=== PATIENT | male | born 2000 | race Caucasian/White ===

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

== ENCOUNTER 2022-01-11 14:50 | Outpatient (CLI) | payer OTHER | END 2022-01-11 14:51 | disposition critical access hospital (66) | LOC: EMS 14:50 | DX: R58 Hemorrhage, not elsewhere classified (principal) | CPT/HCPCS: A0425; A0429 ==

== ENCOUNTER 2022-01-11 15:18 | Emergency (ER) | payer OTHER ==
[2022-01-11] MEDS ORDERED: SODIUM CHLORIDE 0.9% 1,000 ML IV STA (15:22)
[2022-01-11] MEDS ORDERED: DEXAMETHASONE 10 MG/ML VIAL IVP STA (15:22)
--- OUTSIDE RECORDS SUMMARY | 2022-01-11 15:28 | EXTERNAL MEDICAL SUMMARY RPT | Continuity of Care Document ---
:2000 Author Organization [facility] Address [address] [place] [address] Phone Allergies and Intolerances date description facility type (no date) [facility] (unknown) Encounters No information. Functional Status No information. Immunizations No information. Medications No information. Problems No information. Procedures No information. Results/Labs test date author facility value unit interpret ation Result panel 1 (unknown) (no date) (unknown) (unknown) Negative (units (unkn own) unknown) (unknown) (no date) (unknown) (unknown) Negative (units (unkn own) unknown) Result panel 2 (unknown) (no date) (unknown) (unknown) (no value) (units (un known) unknown) (unknown) (no date) (unknown) (unknown) 01/10/22 1100 (units (unknown) unknown) (unknown) (no date) (unknown) (unknown) 541 (units (unkn own) unknown) (unknown) (no date) (unknown) (unknown) Age/Sex: 21 / (units (unknown) M unknown) (unknown) (no date) (unknown) (unknown) Changes to (units (un known) H+P: No unknown) (unknown) (no date) (unknown) (unknown) : (units (unkn own) 2000 unknown) Acct:[id number] (unknown) (no date) (unknown) (unknown) Date of (units (unkn own) Service: unknown) 01/10/22 (unknown) (no date) (unknown) (unknown) History + (units (unk nown) Physical unknown) reviewed/Exam performed by Physician: Yes (unknown) (no date) (unknown) (unknown) Interval Note (units (unknown) unknown) (unknown) (no date) (unknown) (unknown) [place] (units (unkn own) [facility] [address] unknown) [address] [place] [id number] (unknown) (no date) (unknown) (unknown) Patient: (units (unkn own) Emmanuel Davis unknown) MR#: [id number] (unknown) (no date) (unknown) (unknown) Pre-operative (units (unknown) Note unknown) (unknown) (no date) (unknown) (unknown) Provider: (units (unk nowvidal) Inder Herzog unknown) (unknown) (no date) (unknown) (unknown) Signed (units (unkn own) By:<Electronic unknown) ally signed by Inder Herzog MD> Result panel 3 (unknown) (no (unknown) (unknown) (no value) (units (unk nown) date) unknown) (unknown) (no (unknown) (unknown) (past 8 hours): (units (unknown) date) unknown) (unknown) (no (unknown) (unknown) 01/10/22 1103 (units ( unknown) date) unknown) (unknown) (no (unknown) (unknown) 01/10/22 (units (unkno wn) date) unknown) (unknown) (no (unknown) (unknown) 10:24 (units (unkno wn) date) unknown) (unknown) (no (unknown) (unknown) 21-year-old male (units (unknown) date) last seen in unknown) clinic 07/24/2021 presents for tonsillectomy and (unknown) (no (unknown) (unknown) 541 (units (unkno wn) date) unknown) (unknown) (no (unknown) (unknown) Age/Sex: 21 / M (units (unknown) date) unknown) (unknown) (no (unknown) (unknown) Allergies (units (unkn own) date) unknown) (unknown) (no (unknown) (unknown) Allergy/AdvReac (units (unknown) date) Type Severity unknown) Reaction Status Date / Time (unknown) (no (unknown) (unknown) Assessment + (units (u nknown) date) Plan narrative: unknown) (unknown) (no (unknown) (unknown) Assessment + (units (u nknown) date) Plan unknown) (unknown) (no (unknown) (unknown) Assessment: (units (un known) date) Upper airway unknown) obstruction secondary to tonsillar, possible adenoid (unknown) (no (unknown) (unknown) Blood Pressure (units (unknown) date) 125/77 unknown) (unknown) (no (unknown) (unknown) COVID-19 virus (units (unknown) date) infection unknown) (10/09/21) (unknown) (no (unknown) (unknown) Chief complaint: (units (unknown) date) SDC unknown) (unknown) (no (unknown) (unknown) Critical Care (units ( unknown) date) time: unknown) (unknown) (no (unknown) (unknown) : 2000 (units (unknown) date) Acct:[id number] unknown) (unknown) (no (unknown) (unknown) Date Patient (units (u nknown) date) Seen: 01/10/22 unknown) (unknown) (no (unknown) (unknown) Date of Service: (units (unknown) date) 01/10/22 unknown) (unknown) (no (unknown) (unknown) Dysphagia (units (unkn own) date) unknown) (unknown) (no (unknown) (unknown) Exam Narrative: (units (unknown) date) unknown) (unknown) (no (unknown) (unknown) Exam (units (unkno wn) date) unknown) (unknown) (no (unknown) (unknown) Family + Social (units (unknown) date) History unknown) (unknown) (no (unknown) (unknown) History + (units (unkn own) date) Physical Report unknown) (unknown) (no (unknown) (unknown) History of (units (unk nown) date) Present Illness unknown) (unknown) (no (unknown) (unknown) Home Medications (units (unknown) date) and Allergies unknown) (unknown) (no (unknown) (unknown) Home Medications (units (unknown) date) unknown) (unknown) (no (unknown) (unknown) I spent a total (units (unknown) date) of [] minutes of unknown) critical care time on this patient's care (unknown) (no (unknown) (unknown) [facility] (units (unknown) date) [address] unknown) [place] [address] (unknown) (no (unknown) (unknown) Medical History (units (unknown) date) (Reviewed unknown) 01/10/22 @ 11:01 by Inder Herzog MD) (unknown) (no (unknown) (unknown) Medication (units (unk nown) date) Instructions unknown) Recorded Confirmed Type (unknown) (no (unknown) (unknown) Meds (units (unkno wn) date) unknown) (unknown) (no (unknown) (unknown) Narrative (units (unkn own) date) unknown) (unknown) (no (unknown) (unknown) Narrative: (units (unk nown) date) unknown) (unknown) (no (unknown) (unknown) Negative except (units (unknown) date) as listed in the unknown) HPI (unknown) (no (unknown) (unknown) No Known Home (units ( unknown) date) Medications unknown) 10/09/21 10/09/21 History (unknown) (no (unknown) (unknown) No recent cough (units (unknown) date) cold or fever. unknown) (unknown) (no (unknown) (unknown) Oxygen Delivery (units (unknown) date) Method Room Air unknown) (unknown) (no (unknown) (unknown) Patient History (units (unknown) date) unknown) (unknown) (no (unknown) (unknown) Patient: (units (unkno wn) date) Emmanuel Davis MR#: unknown) [id number] (unknown) (no (unknown) (unknown) Penicillins (units (un known) date) Allergy Severe unknown) Facial, Verified 01/10/22 10:09 (unknown) (no (unknown) (unknown) Plan: Following (units (unknown) date) discussion of the unknown) material risks benefits complications and (unknown) (no (unknown) (unknown) Provider: (units (unkn own) date) Inder Herzog MD unknown) (unknown) (no (unknown) (unknown) Pulse Oximetry (units (unknown) date) 97 unknown) (unknown) (no (unknown) (unknown) Pulse Rate 83 (units ( unknown) date) unknown) (unknown) (no (unknown) (unknown) Recurrent acute (units (unknown) date) tonsillitis unknown) (unknown) (no (unknown) (unknown) Respiratory Rate (units (unknown) date) 16 unknown) (unknown) (no (unknown) (unknown) Respiratory (units (un known) date) obstruction unknown) (unknown) (no (unknown) (unknown) Review of (units (unkn own) date) Systems unknown) (unknown) (no (unknown) (unknown) Signed (units (unkno wn) date) By:<Electronicall unknown) y signed by Inder Herzog MD> (unknown) (no (unknown) (unknown) Smoking Status (units (unknown) date) Never smoker unknown) (unknown) (no (unknown) (unknown) Social History: (units (unknown) date) unknown) (unknown) (no (unknown) (unknown) Substance Use (units ( unknown) date) Type does not use unknown) (unknown) (no (unknown) (unknown) Temperature 98.5 (units (unknown) date) F unknown) (unknown) (no (unknown) (unknown) Time Patient (units (u nknown) date) Seen: 11:00 unknown) (unknown) (no (unknown) (unknown) Time Spent With (units (unknown) date) Patient unknown) (unknown) (no (unknown) (unknown) Tobacco + (units (unkn own) date) Substance use: unknown) (unknown) (no (unknown) (unknown) Tonsillar (units (unkn own) date) hypertrophy unknown) (unknown) (no (unknown) (unknown) Vital Signs (units (un known) date) unknown) (unknown) (no (unknown) (unknown) Well-developed (units (unknown) date) well-nourished unknown) large for age male in no acute distress. Heart (unknown) (no (unknown) (unknown) adenoidectomy as (units (unknown) date) outpatient. unknown) (unknown) (no (unknown) (unknown) alcohol intake (units (unknown) date) never unknown) (unknown) (no (unknown) (unknown) alternatives, (units ( unknown) date) the patient unknown) elected to proceed with tonsillectomy and possible (unknown) (no (unknown) (unknown) household (units (unkn own) date) members family unknown) (unknown) (no (unknown) (unknown) hypertrophy, (units (u nknown) date) recurrent acute unknown) tonsillitis, dysphagia (unknown) (no (unknown) (unknown) last visit, (units (un known) date) symptoms unknown) otherwise unchanged, wishes to proceed. His initial (unknown) (no (unknown) (unknown) possible (units (unkno wn) date) adenoidectomy for unknown) significant hypertrophy, upper airway obstruction, (unknown) (no (unknown) (unknown) recurrent acute (units (unknown) date) tonsillitis and unknown) dysphagia. No interval severe episodes since (unknown) (no (unknown) (unknown) regular rate and (units (unknown) date) rhythm without unknown) murmur, lungs clear to auscultation bilaterally. (unknown) (no (unknown) (unknown) surgery date was (units (unknown) date) delayed due to unknown) COVID positive diagnosis 10/09, now asymptomatic. (unknown) (no (unknown) (unknown) swelling (units (unkno wn) date) unknown) (unknown) (no (unknown) (unknown) throat (units (unkno wn) date) unknown) (unknown) (no (unknown) (unknown) today; this time (units (unknown) date) is exclusive of unknown) procedural time. Result panel 4 (unknown) (no (unknown) (unknown) (no value) (units (unk nown) date) unknown) (unknown) (no (unknown) (unknown) 21-year-old male (units (unknown) date) with the above unknown) diagnoses incompletely managed with medical (unknown) (no (unknown) (unknown) 541 (units (unkno wn) date) unknown) (unknown) (no (unknown) (unknown) Age/Sex: 21 / M (units (unknown) date) unknown) (unknown) (no (unknown) (unknown) Anesthesia Type: (units (unknown) date) General and Local unknown) (unknown) (no (unknown) (unknown) Click Yes if (units (u nknown) date) Unassisted: Yes unknown) (unknown) (no (unknown) (unknown) Complications: (units (unknown) date) none unknown) (unknown) (no (unknown) (unknown) Condition: (units (unk nown) date) stable unknown) (unknown) (no (unknown) (unknown) : 2000 (units (unknown) date) Acct:[id number] unknown) (unknown) (no (unknown) (unknown) Date of Service: (units (unknown) date) 01/10/22 unknown) (unknown) (no (unknown) (unknown) Date of (units (unkno wn) date) procedure: unknown) 01/10/22 (unknown) (no (unknown) (unknown) Disposition: (units (u nknown) date) same day surgery unknown) (unknown) (no (unknown) (unknown) Findings: (units (unkn own) date) unknown) (unknown) (no (unknown) (unknown) Following (units (unkn own) date) identification unknown) and confirmation of consent the patient was brought to (unknown) (no (unknown) (unknown) Indications: (units (u nknown) date) unknown) (unknown) (no (unknown) (unknown) Intact palate, (units (unknown) date) single uvula, 4+ unknown) tonsils, 2+ adenoids (unknown) (no (unknown) (unknown) [facility] (units (unknown) date) [address] unknown) [place] [address] (unknown) (no (unknown) (unknown) Operative (units (unkn own) date) Date/Time/Diagnos unknown) es (unknown) (no (unknown) (unknown) Operative Note (units (unknown) date) unknown) (unknown) (no (unknown) (unknown) Operative Notes (units (unknown) date) unknown) (unknown) (no (unknown) (unknown) Patient: (units (unkno wn) date) Emmanuel Davis MR#: unknown) [id number] (unknown) (no (unknown) (unknown) Plan for (units (unkno wn) date) aftercare: unknown) (unknown) (no (unknown) (unknown) Post-op (units (unkno wn) date) diagnosis: same unknown) (unknown) (no (unknown) (unknown) Post-operative (units (unknown) date) unknown) (unknown) (no (unknown) (unknown) Pre-op (units (unkno wn) date) diagnosis: Upper unknown) airway obstruction secondary to tonsillar hypertrophy, (unknown) (no (unknown) (unknown) Procedure + (units (un known) date) Clinicians unknown) (unknown) (no (unknown) (unknown) Procedure in (units (u nknown) date) detail: unknown) (unknown) (no (unknown) (unknown) Procedure: (units (unk nown) date) unknown) (unknown) (no (unknown) (unknown) Provider: (units (unkn own) date) Inder Herzog MD unknown) (unknown) (no (unknown) (unknown) Push fluids, (units (u nknown) date) alternate Tylenol unknown) and Advil every 3 hours for baseline pain (unknown) (no (unknown) (unknown) Same procedure (units (unknown) date) as scheduled: Yes unknown) (unknown) (no (unknown) (unknown) Signed By: (units (unk nown) date) unknown) (unknown) (no (unknown) (unknown) Surgeon: Inder (units (unknown) date) Mino unknown) (unknown) (no (unknown) (unknown) The left tonsil (units (unknown) date) was retracted unknown) medially and suction electrocautery on a setting (unknown) (no (unknown) (unknown) Tonsillectomy (units ( unknown) date) unknown) (unknown) (no (unknown) (unknown) ablated with (units (u nknown) date) suction unknown) electrocautery on a setting of 40, without injury to the (unknown) (no (unknown) (unknown) bilaterally with (units (unknown) date) 2% lidocaine 1 unknown) 100,000 epinephrine. Mouth gag and rubber (unknown) (no (unknown) (unknown) catheter were (units ( unknown) date) removed and the unknown) patient was extubated in the operating room and (unknown) (no (unknown) (unknown) control, (units (unkno wn) date) oxycodone for unknown) breakthrough pain. Soft diet 2 full weeks, no heavy (unknown) (no (unknown) (unknown) eustachian tube (units (unknown) date) orifices or unknown) choana. (unknown) (no (unknown) (unknown) hemostasis with (units (unknown) date) the same. This unknown) process was repeated on the right side with (unknown) (no (unknown) (unknown) identical (units (unkn own) date) findings. The unknown) tonsillar fossae were superficially infiltrated (unknown) (no (unknown) (unknown) l anesthesia was (units (unknown) date) administered. A unknown) head wrap, shoulder roll, and mouth gag were (unknown) (no (unknown) (unknown) lifting or (units (unk nown) date) straining 2 unknown) weeks. (unknown) (no (unknown) (unknown) mouth to retract (units (unknown) date) the soft palate. unknown) Partially obstructive adenoid tissue was (unknown) (no (unknown) (unknown) of 30 was used (units (unknown) date) to dissect the unknown) tonsil in a subcapsular plane, followed by (unknown) (no (unknown) (unknown) placed and a red (units (unknown) date) rubber catheter unknown) was inserted through the nostril and out the (unknown) (no (unknown) (unknown) recurrent acute (units (unknown) date) tonsillitis, unknown) dysphagia (unknown) (no (unknown) (unknown) risks benefits (units (unknown) date) complications and unknown) alternatives, the patient elected proceed. (unknown) (no (unknown) (unknown) taken to the (units (u nknown) date) recovery room in unknown) stable condition without known complication. (unknown) (no (unknown) (unknown) the operating (units ( unknown) date) room suite and unknown) placed in the supine position. General endotrachea (unknown) (no (unknown) (unknown) therapy presents (units (unknown) date) for the above unknown) procedure. Following discussion of the material Result panel 5 (unknown) (no (unknown) (unknown) (no value) (units (unk nown) date) unknown) (unknown) (no (unknown) (unknown) 01/10/22 1157 (units ( unknown) date) unknown) (unknown) (no (unknown) (unknown) 21-year-old male (units (unknown) date) with the above unknown) diagnoses incompletely managed with medical (unknown) (no (unknown) (unknown) 541 (units (unkno wn) date) unknown) (unknown) (no (unknown) (unknown) Age/Sex: 21 / M (units (unknown) date) unknown) (unknown) (no (unknown) (unknown) Anesthesia Type: (units (unknown) date) General and Local unknown) (unknown) (no (unknown) (unknown) Click Yes if (units (u nknown) date) Unassisted: Yes unknown) (unknown) (no (unknown) (unknown) Complications: (units (unknown) date) none unknown) (unknown) (no (unknown) (unknown) Condition: (units (unk nown) date) stable unknown) (unknown) (no (unknown) (unknown) : 2000 (units (unknown) date) Acct:[id number] unknown) (unknown) (no (unknown) (unknown) Date of Service: (units (unknown) date) 01/10/22 unknown) (unknown) (no (unknown) (unknown) Date of (units (unkno wn) date) procedure: unknown) 01/10/22 (unknown) (no (unknown) (unknown) Disposition: (units (u nknown) date) same day surgery unknown) (unknown) (no (unknown) (unknown) Estimated Blood (units (unknown) date) Loss (mL): 15 unknown) (unknown) (no (unknown) (unknown) Findings: (units (unkn own) date) unknown) (unknown) (no (unknown) (unknown) Following (units (unkn own) date) identification unknown) and confirmation of consent the patient was brought to (unknown) (no (unknown) (unknown) Indications: (units (u nknown) date) unknown) (unknown) (no (unknown) (unknown) Intact palate, (units (unknown) date) single uvula, 4+ unknown) tonsils, 2+ adenoids (unknown) (no (unknown) (unknown) [facility] (units (unknown) date) [address] unknown) [place] [address] (unknown) (no (unknown) (unknown) Operative (units (unkn own) date) Date/Time/Diagnos unknown) es (unknown) (no (unknown) (unknown) Operative Note (units (unknown) date) unknown) (unknown) (no (unknown) (unknown) Operative Notes (units (unknown) date) unknown) (unknown) (no (unknown) (unknown) Patient: (units (unkno wn) date) Emmanuel Davis MR#: unknown) [id number] (unknown) (no (unknown) (unknown) Plan for (units (unkno wn) date) aftercare: unknown) (unknown) (no (unknown) (unknown) Post-op (units (unkno wn) date) diagnosis: same unknown) (with mild adenoid hypertrophy) (unknown) (no (unknown) (unknown) Post-operative (units (unknown) date) unknown) (unknown) (no (unknown) (unknown) Pre-op (units (unkno wn) date) diagnosis: Upper unknown) airway obstruction secondary to tonsillar hypertrophy, (unknown) (no (unknown) (unknown) Procedure + (units (un known) date) Clinicians unknown) (unknown) (no (unknown) (unknown) Procedure in (units (u nknown) date) detail: unknown) (unknown) (no (unknown) (unknown) Procedure: (units (unk nown) date) unknown) (unknown) (no (unknown) (unknown) Provider: (units (unkn own) date) Inder Herzog MD unknown) (unknown) (no (unknown) (unknown) Push fluids, (units (u nknown) date) alternate Tylenol unknown) and Advil every 3 hours for baseline pain (unknown) (no (unknown) (unknown) Same procedure (units (unknown) date) as scheduled: Yes unknown) (unknown) (no (unknown) (unknown) Signed (units (unkno wn) date) By:<Electronicall unknown) y signed by Inder Herzog MD> (unknown) (no (unknown) (unknown) Surgeon: Inder (units (unknown) date) Mino unknown) (unknown) (no (unknown) (unknown) The left tonsil (units (unknown) date) was retracted unknown) medially and suction electrocautery on a setting (unknown) (no (unknown) (unknown) Time of (units (unkno wn) date) procedure: 11:55 unknown) (unknown) (no (unknown) (unknown) Tonsillectomy (units ( unknown) date) and adenoidectomy unknown) (unknown) (no (unknown) (unknown) bilaterally with (units (unknown) date) 2% lidocaine 1 unknown) 100,000 epinephrine. Mouth gag and rubber (unknown) (no (unknown) (unknown) catheter were (units ( unknown) date) removed and the unknown) patient was extubated in the operating room and (unknown) (no (unknown) (unknown) control, (units (unkno wn) date) oxycodone for unknown) breakthrough pain. Soft diet 2 full weeks, no heavy (unknown) (no (unknown) (unknown) endotracheal (units (u nknown) date) anesthesia was unknown) administered. A head wrap, shoulder roll, and mouth (unknown) (no (unknown) (unknown) gag were placed (units (unknown) date) and a red rubber unknown) catheter was inserted through the nostril and (unknown) (no (unknown) (unknown) hemostasis with (units (unknown) date) the same. This unknown) process was repeated on the right side with (unknown) (no (unknown) (unknown) identical (units (unkn own) date) findings. The unknown) tonsillar fossae were superficially infiltrated (unknown) (no (unknown) (unknown) lifting or (units (unk nown) date) straining 2 unknown) weeks. (unknown) (no (unknown) (unknown) of 30 was used (units (unknown) date) to dissect the unknown) tonsil in a subcapsular plane, followed by (unknown) (no (unknown) (unknown) out the mouth to (units (unknown) date) retract the soft unknown) palate. Partially obstructive adenoid tissue (unknown) (no (unknown) (unknown) recurrent acute (units (unknown) date) tonsillitis, unknown) dysphagia (unknown) (no (unknown) (unknown) risks benefits (units (unknown) date) complications and unknown) alternatives, the patient elected proceed. (unknown) (no (unknown) (unknown) taken to the (units (u nknown) date) recovery room in unknown) stable condition without known complication. (unknown) (no (unknown) (unknown) the eustachian (units (unknown) date) tube orifices or unknown) choana. (unknown) (no (unknown) (unknown) the operating (units ( unknown) date) room suite and unknown) placed in the supine position. General (unknown) (no (unknown) (unknown) therapy presents (units (unknown) date) for the above unknown) procedure. Following discussion of the material (unknown) (no (unknown) (unknown) was ablated with (units (unknown) date) suction unknown) electrocautery on a setting of 40, without injury to Social History No information. Vital Signs No information.
--- NOTE | 2022-01-11 15:32 | ED Physician Documentation ---
History of Present Illness - Stated complaint Stated Complaint: BLEEDING TONSILS - History obtained from History obtained from: Patient, EMS - History of Present Illness Timing: Today - Additonal information Additional information: May Davis is a 21-year-old male who had his tonsils taken out yesterday at [facility] by Dr. Inder Herzog. This morning he has developed acute bleeding and passing clots. He called the ambulance has come to the hospital. In route to the hospital his bleeding has reduced. Review of Systems Constitutional: denies: Fever Eyes: denies: Decreased vision Ears: denies: Ear pain Nose: denies: Rhinorrhea / runny nose, Congestion Throat: reports: Sore throat Respiratory: denies: Cough GI: denies: Vomiting, Diarrhea : denies: Dysuria PD PAST MEDICAL HISTORY - Past Medical History Cardiovascular: None Respiratory: None Neuro: None Endocrine/Autoimmune: None GI: None : None HEENT: None Psych: None Musculoskeletal: None Derm: None - Past Surgical History Past Surgical History: No - Present Medications Home Medications: Ambulatory Orders Medication Instructions Recorded Confirmed No Known Home Medications 09/08/21 09/08/21 - Allergies Allergies/Adverse Reactions: Allergies Allergy/AdvReac Type Severity Reaction Status Date / Time Penicillins Allergy Intermediate swelling Verified 01/11/22 15:26 - Social History Does the pt smoke?: No Smoking Status: Never smoker Does the pt drink ETOH?: No Does the pt have substance abuse?: Yes - Immunizations Immunizations are current?: Yes - POLST Patient has POLST: No PD ED PE NORMAL - Vitals Vital signs reviewed: Yes (normal ) - General General: Alert and oriented X 3, No acute distress, Well developed/nourished - HEENT HEENT: Atraumatic, PERRL, EOMI, Other (There is a clot to the left tonsil bed without active bleeding the clot on the right is smaller and consistent with post op day 1) - Neck Neck: Supple, no meningeal sign, No bony TTP - Cardiac Cardiac: RRR, No murmur - Respiratory Respiratory: No respiratory distress, Clear bilaterally - Abdomen Abdomen: Soft, Non tender - Back Back: No CVA TTP, No spinal TTP - Derm Derm: Normal color, Warm and dry, No rash - Extremities Extremities: No deformity, No edema - Neuro Neuro: Alert and oriented X 3, glacing machine tender 2-12 intact, No motor deficit, No sensory deficit, Other (speech consistent with pharyngeal swelling ) Eye Opening: Spontaneous Motor: Obeys Commands Verbal: Oriented GCS Score: 15 - Psych Psych: Normal mood, Normal affect Results - Vitals Vitals: Vital Signs - 24 hr 01/11/22 15:20 Temperature 37.2 C Heart Rate 82 Respiratory 16 Rate Blood Pressure 104/76 O2 Saturation 97 Oxygen O2 Source Room air - Labs Labs: Laboratory Tests 01/11/22 01/11/22 01/11/22 15:27 15:27 15:27 WBC 20.0 H RBC 4.82 Hgb 14.2 Hct 41.2 L MCV 85.5 MCH 29.5 MCHC 34.5 RDW 11.9 L Plt Count 298 MPV 9.4 Neut # (Auto) 15.1 H Lymph # (Auto) 2.9 Major # (Auto) 1.8 H Eos # (Auto) 0.0 Baso # (Auto) 0.0 Absolute Nucleated RBC 0.00 Band Neuts % (Manual) Not Reportable Abnorm Lymph % (Manual) Not Reportable Nucleated RBC % 0.0 Neutrophils # (Manual) Not Reportable Lymphocytes # (Manual) Not Reportable Monocytes # (Manual) Not Reportable Eosinophils # (Manual) Not Reportable Basophils # (Manual) Not Reportable Differential Comment MANUAL=AUTO DIFF Manual Slide Review Indicated Platelet Estimate NORMAL (130-450,000) Platelet Morphology NORMAL APPEARANCE RBC Morph Micro Appear NORMAL APPEARANCE Sodium 136 Potassium 3.7 Chloride 104 Carbon Dioxide 23 Anion Gap 9.0 BUN 16 Creatinine 0.8 Estimated GFR (MDRD) 125 Glucose 114 H Calcium 9.5 Total Bilirubin 0.6 AST 19 ALT 22 Alkaline Phosphatase 73 Total Protein 7.0 Albumin 3.8 Globulin 3.2 Albumin/Globulin Ratio 1.2 Lipase 32 Blood Type AB POSITIVE Blood Type Recheck Antibody Screen NEGATIVE 01/11/22 16:14 WBC RBC Hgb Hct MCV MCH MCHC RDW Plt Count MPV Neut # (Auto) Lymph # (Auto) Major # (Auto) Eos # (Auto) Baso # (Auto) Absolute Nucleated RBC Band Neuts % (Manual) Abnorm Lymph % (Manual) Nucleated RBC % Neutrophils # (Manual) Lymphocytes # (Manual) Monocytes # (Manual) Eosinophils # (Manual) Basophils # (Manual) Differential Comment Manual Slide Review Platelet Estimate Platelet Morphology RBC Morph Micro Appear Sodium Potassium Chloride Carbon Dioxide Anion Gap BUN Creatinine Estimated GFR (MDRD) Glucose Calcium Total Bilirubin AST ALT Alkaline Phosphatase Total Protein Albumin Globulin Albumin/Globulin Ratio Lipase Blood Type Blood Type Recheck AB POSITIVE Antibody Screen PD MEDICAL DECISION MAKING - ED course Complexity details: considered differential, d/w patient, d/w family ED course: 21-year-old day 1 postop from tonsillectomy has developed postoperative bleeding this has spontaneously improved. He is administered 10 mg of dexamethasone and 1 g of tranexamic acid intravenously. He has no further bleeding while in the emergency department reexamination shows a clot pointing off of the left tonsil. No active bleeding. Departure - Departure Disposition: Home, Self Care Clinical Impression: Postoperative haemorrhage of tonsil Condition: Stable Instructions: ED Tonsillectomy Post Op Bleeding Follow-Up: Inder Herzog MD [Physician No Access] - Comments: May, Today it looks like we have control of this bleeding. If your bleeding re-starts and is not controllable the recommendation is to follow up in the ED at [facility] where your surgeon can see you. Today you were given dexamethasone and tranexemic acid to control the bleeding.
[2022-01-11 15:35] LABS: BASOPHILS % (AUTO) 0.2 %; RED CELL DISTRIBUTION WIDTH 11.9 % (12.0-15.0)
[2022-01-11] MEDS ORDERED: TRANEXAMIC ACID 1,000 MG in SODIUM CHLORIDE 0.9% 100ML 100 ML IV STA (15:43)
[2022-01-11 15:44] LABS: ALBUMIN 3.8 g/dL (3.2-5.5); ALBUMIN/GLOBULIN RATIO 1.2 (1.0-2.2); BILIRUBIN,TOTAL 0.6 mg/dL (0.2-1.0); CALCIUM 9.5 mg/dL (8.5-10.3); CREATININE 0.8 mg/dL (0.6-1.2); POTASSIUM 3.7 mmol/L (3.5-5.0)
[2022-01-11 15:46] LABS: EOSINOPHILS % (AUTO) 0.2 %; HCT - HEMATOCRIT 41.2 % (42.0-52.0); HGB - HEMOGLOBIN 14.2 g/dL (14.0-18.0); LYMPHOCYTES # (AUTO) 2.9 10^3/uL (1.5-3.5); LYMPHOCYTES % (AUTO) 14.6 %; MEAN CORPUSCULAR HEMOGLOBIN 29.5 pg (27.0-31.0); MEAN CORPUSCULAR HGB CONC 34.5 g/dL (32.0-36.0); MEAN CORPUSCULAR VOLUME 85.5 fL (80.0-94.0); MEAN PLATELET VOLUME 9.4 fL (7.4-11.4); MONOCYTES # (AUTO) 1.8 10^3/uL (0.0-1.0); MONOCYTES % (AUTO) 9.1 %; NEUTROPHILS # (AUTO) 15.1 10^3/uL (1.5-6.6); NEUTROPHILS % (AUTO) 75.4 %; PLT - PLATELET COUNT 298 10^3/uL (130-450); RED BLOOD COUNT 4.82 10^6/uL (4.70-6.10)
[2022-01-11 15:51] LABS: SLIDE REVIEW? Indicated
[2022-01-11 16:08] LABS: DIFFERENTIAL COMMENT MANUAL=AUTO DIFF; PLATELET ESTIMATE, MANUAL NORMAL (130-450,000) (NORMAL); PLATELET MORPHOLOGY NORMAL APPEARANCE (NORMAL); RBC MORPHOLOGY (MULTIPLE) NORMAL APPEARANCE (NORMAL)
[2022-01-11] MEDS ORDERED: KETOROLAC 30 MG/ML VIAL IVP STA (18:03)
[2022-01-11 18:30] VITALS: BP 120/76
== END 2022-01-11 18:30 | disposition home or self-care (01) ==
LOC: EDUNIT# → ED 15:18
DX: E89.811 Postprocedural hemorrhage of an endocrine system organ or structure following other procedure (principal)
CPT/HCPCS: 36415; 80053; 83690; 85025; 86850; 86900; 86901; 96365; 96375; 99282